=== PATIENT | male | born 1940 | race Caucasian/White ===

== ENCOUNTER 2016-08-17 12:12 | Day surgery (SDC) | payer OTHER ==
[2016-08-17] MEDS ORDERED: PROPOFOL 200 MG/20 ML VIAL IVP ONE (12:32)
[2016-08-17] MEDS ORDERED: fentaNYL 100 MCG/2 ML INJ IVP ONE (12:32)
[2016-08-17] MEDS ORDERED: MIDAZOLAM 2 MG/2 ML VIAL IVP ONE (12:32)
[2016-08-17] MEDS ORDERED: NS 500 ML IV ONE (12:32)
[2016-08-17] MEDS ORDERED: BENZOCAINE UNIT DOSE SPRAY HURRICAINE MM ONE (12:32)
--- NOTE | 2016-08-17 13:07 | CPEKG ---
Heart Rate: 119 RR Interval: 504 QRSD Interval: 88 QT Interval: 344 QTC Interval: 485 QRS [place]: -19 T Wave [place]: 51 EKG Severity - ABNORMAL ECG - EKG Impression: ATRIAL FIBRILLATION EKG Impression: BORDERLINE LEFT AXIS DEVIATION EKG Impression: BORDERLINE PROLONGED QT INTERVAL Electronically Signed By: Roberto Rainey 17-Aug-2016 18:26:19
[2016-08-17] MEDS ORDERED: LIDOCAINE 2% 5 ML SDV ONE (13:38)
[2016-08-17 13:40] LABS: INR 1.21 (0.83-1.16); PROTIME(PATIENT) 15.3 SEC (12.0-15.0)
[2016-08-17 13:41] LABS: APTT 39.4 SEC (23.0-38.0)
[2016-08-17 13:56] LABS: ANION GAP 8 mEq/L (8-16); CALCIUM 9.2 mg/dL (8.5-10.4); CARBON DIOXIDE 25 mEq/l (22-31); CHLORIDE 107 mEq/L (97-110); CREATININE 1.2 mg/dL (0.7-1.3); GLOMERULAR FILTRATION RATE 59; GLUCOSE 97 mg/dL (70-100); POTASSIUM 4.5 mEq/L (3.5-5.2); SODIUM 140 mEq/L (134-144)
--- NOTE | 2016-08-17 14:05 | CPEKG ---
Heart Rate: 73 RR Interval: 822 P-R Interval: 200 QRSD Interval: 112 QT Interval: 404 QTC Interval: 446 P [place]: 43 QRS [place]: -25 T Wave [place]: 28 EKG Severity - ABNORMAL ECG - EKG Impression: SINUS RHYTHM EKG Impression: INCOMPLETE RIGHT BUNDLE BRANCH BLOCK EKG Impression: LEFT AXIS DEVIATION Electronically Signed By: Roberto Rainey 17-Aug-2016 18:25:55
--- NOTE | 2016-08-17 14:18 | EPPROC ---
Electrophysiology Procedure Note: Procedure: CV Indication: Symptomatic AF Procedure: Pt sedated by anesthesia staff. JEAN performed which is reported separately. Once DARBY clot ruled out, pt cardioverted using 200J of synchronized DC. Pt successfully converted to SR. Conclusion: Successful CV.
== END 2016-08-17 15:46 | disposition home or self-care (01) ==
LOC: FCATH 12:12
PROVIDERS: ATTEND Internal Medicine Cardiovascular Disease
DX: I48.1 Persistent atrial fibrillation (principal); K21.9 Gastro-esophageal reflux disease without esophagitis
CPT/HCPCS: J2704

== ENCOUNTER 2017-02-20 14:35 | Observation (INO) | payer OTHER ==
--- NOTE | 2017-02-20 14:58 | CPEKG ---
Heart Rate: 126 RR Interval: 476 QRSD Interval: 94 QT Interval: 324 QTC Interval: 470 QRS [place]: -22 T Wave [place]: 38 EKG Severity - ABNORMAL ECG - EKG Impression: ATRIAL FIBRILLATION, V-RATE 91-170 EKG Impression: BORDERLINE LEFT AXIS DEVIATION Electronically Signed By: Polina Monahan 20-Feb-2017 20:36:44
--- NOTE | 2017-02-20 15:20 | EDPHY ---
H & P Time Seen by Provider: 02/20/17 15:00 HPI/ROS: CHIEF COMPLAINT: Atrial fibrillation HISTORY OF PRESENT ILLNESS: The patient is a 77-year-old male with known intermittent atrial fibrillation on Pradaxa who presents to the emergency department in atrial fibrillation with rapid ventricular response. He felt his symptoms started at 4:30 a.m.. He felt a "strange sensation "in his heart. He describes palpitations. This is similar to his previous episodes of atrial fibrillation. He spoke with his satellite installation technician on the phone. He took metoprolol 25 mg at 6:00 a.m.. He took a 2nd dose of metoprolol 25 mg at 7:30 a.m.. His symptoms persisted. At 1:00 p.m. he ate cake. He then went to his satellite installation technician 's office where he was found to be in atrial fibrillation with rapid ventricular rate. The based on to the emergency department for treatment with Cardizem and admission if he does not convert. Patient has no chest pain or shortness of breath. No recent fevers or chills. The patient does not drink alcohol. No [id number] medications. He has been taking his medications as directed. REVIEW OF SYSTEMS: My complete review of systems is negative except as mentioned in the HPI. Past Medical/Surgical History: Atrial fibrillation, aortic valve insufficiency, hypertension, high cholesterol Past surgical history: Includes shoulder surgery Social history: The patient does not smoke or use alcohol. He is to an emergency nurse. Smoking Status: Never smoked Physical Exam: Vitals noted. Tachycardic at 112.. GENERAL: Well-appearing, in no acute distress, alert. HEENT: Eyes normal to inspection, normal pharynx, no signs of dehydration. NECK: No thyromegaly, no lymphadenopathy, supple. RESPIRATORY: Clear to auscultation bilaterally, no rales, rhonchi or wheezing. CVS: Irregularly irregular rhythm but tachycardia, murmurs, or gallops. ABDOMEN: Soft, nontender, nondistended, no organomegaly. BACK: Normal to inspection, no CVA tenderness. SKIN: Normal color, no rash, warm, dry. No pallor. EXTREMITIES: No pedal edema, no calf tenderness, no Homans sign or cords, no joint swelling. NEURO/PSYCH: Alert and oriented x3, normal mood and affect, normal motor sensory exam. Constitutional: Initial Vital Signs Temperature (C) 36.4 C 02/20/17 14:36 Heart Rate 112 H 02/20/17 14:36 Respiratory Rate 18 02/20/17 14:36 Blood Pressure 105/73 02/20/17 14:36 O2 Sat (%) 97 02/20/17 14:36 O2 Delivery Mode Room Air Allergies/Adverse Reactions: hydrocodone [Hydrocodone] Allergy (Intermediate, Verified 02/20/17 14:42) Itching Home Medications: Medication Instructions Recorded Lipitor 20 mg 09/30/09 LORAZEPAM 0.5 mg PRN 02/18/11 Losartan-Hctz 100-25 mg Tab 08/17/16 Metoprolol Tartrate 25 mg BID 08/17/16 Pradaxa 150 MG (*) BID 08/17/16 Ipratropium 02/20/17 Nexium 02/20/17 Medical Decision Making ED Course/Re-evaluation: In the emergency department I discussed etiologies with the patient. I answered all his questions. IV was placed. Laboratory studies were obtained. An EKG was obtained. The patient is taking his Pradaxa as directed. EKG: Atrial fibrillation at 126. Borderline left axis deviation. Patient was given diltiazem 20 mg IV. His blood pressure in triage was 105/73. The room was 163 systolic. The patient was placed on a diltiazem drip. After receiving the. Patient's rate was controlled into the 50s-60s Repeat EKG: Atrial fibrillation at 67 For ongoing rate control he was placed on Cardizem drip. I discussed the case with Dr. Roberts from the hospital service. She will admit. Cardiology is aware the patient was sent to the emergency department. I rechecked the patient on numerous occasions. He was stable during his stay. I explained the admission and answers questions. Differential Diagnosis: My differential includes but is not limited to ACS, acute VT, atrial fibrillation with RVR, atrial flutter, electrolyte abnormality, sugar abnormality, dehydration Critical Care Time: Patient required 35 minutes of critical care time. This was exclusive of any unbundled procedure. This was due to the patient's atrial fibrillation with rapid ventricular rate, need for Cardizem bolus followed by Cardizem drip. - Data Points Laboratory Results: Laboratory Results 02/20/17 15:18 02/20/17 15:18 02/20/17 02/20/17 02/20/17 15:18 15:18 15:18 WBC 8.44 10^3/uL 10^3/uL (3.80-9.50) RBC 5.26 10^6/uL 10^6/uL (4.40-6.38) Hgb 17.2 g/dL g/dL (13.7-17.5) Hct 47.7 % % (40.0-51.0) MCV 90.7 fL fL (81.5-99.8) MCH 32.7 pg pg (27.9-34.1) MCHC 36.1 g/dL g/dL (32.4-36.7) RDW 13.0 % % (11.5-15.2) Plt Count 290 10^3/uL 10^3/uL (150-400) MPV 9.8 fL fL (8.7-11.7) Neut % (Auto) 63.4 % % (39.3-74.2) Lymph % (Auto) 25.2 % % (15.0-45.0) [place] % (Auto) 8.2 % % (4.5-13.0) Eos % (Auto) 1.9 % % (0.6-7.6) Baso % (Auto) 1.1 % % (0.3-1.7) Nucleat RBC Rel Count 0.0 % % (0.0-0.2) Absolute Neuts (auto) 5.35 10^3/uL 10^3/uL (1.70-6.50) Absolute Lymphs (auto) 2.13 10^3/uL 10^3/uL (1.00-3.00) Absolute Monos (auto) 0.69 10^3/uL 10^3/uL (0.30-0.80) Absolute Eos (auto) 0.16 10^3/uL 10^3/uL (0.03-0.40) Absolute Basos (auto) 0.09 10^3/uL 10^3/uL (0.02-0.10) Absolute Nucleated RBC 0.00 10^3/uL 10^3/uL (0-0.01) Immature Gran % 0.2 % % (0.0-1.1) Immature Gran # 0.02 10^3/uL 10^3/uL (0.00-0.10) PT 15.3 SEC H SEC (12.0-15.0) INR 1.21 H (0.83-1.16) APTT 46.0 SEC H SEC (23.0-38.0) Sodium 144 mEq/L mEq/L (134-144) Potassium 5.3 mEq/L H mEq/L (3.5-5.2) Chloride 102 mEq/L mEq/L (97-110) Carbon Dioxide 24 mEq/l mEq/l (22-31) Anion Gap 18 mEq/L H mEq/L (8-16) BUN 19 mg/dL mg/dL (7-23) Creatinine 1.1 mg/dL mg/dL (0.7-1.3) Estimated GFR > 60 Glucose 103 mg/dL H mg/dL (70-100) Calcium 10.0 mg/dL mg/dL (8.5-10.4) Troponin I 0.029 ng/mL ng/mL (0.000-0.034) Specimen Hemolysis 185 Medications Given: Discontinued Medications Aspirin (Aspirin) 324 mg PO EDNOW ONE Stop: 02/20/17 15:22 Last Admin: 02/20/17 15:41 Dose: 324 mg Diltiazem HCl (Cardizem 25 Mg/5 Ml Vial) 20 mg IVP EDNOW ONE Stop: 02/20/17 15:22 Last Admin: 02/20/17 15:34 Dose: 20 mg Sodium Chloride (Ns) 500 mls @ 1,000 mls/hr IV EDNOW ONE PRN Reason: Protocol Stop: 02/20/17 15:50 Last Admin: 02/20/17 15:35 Dose: 500 mls Departure - Departure Disposition: [facility] Acute Clinical Impression: Atrial fibrillation with RVR Atrial fibrillation Qualifiers: Atrial fibrillation type: paroxysmal Qualified Code(s): I48.0 - Paroxysmal atrial fibrillation Condition: Good
[2017-02-20] MEDS ORDERED: DILTIAZEM 25 MG/5 ML VIAL IVP ONE (15:21)
[2017-02-20] MEDS ORDERED: ASPIRIN 81 MG CHEWABLE TAB PO ONE (15:21)
[2017-02-20] MEDS ORDERED: DILTIAZEM 125 MG in D5W 125 ML IV ONE (15:21)
[2017-02-20] MEDS ORDERED: NS 500 ML IV ONE (15:21)
[2017-02-20 15:27] LABS: % IMMATURE GRANULYOCYTES 0.2 % (0.0-1.1); ABSOLUTE IMMATURE GRANULOCYTES 0.02 10^3/uL (0.00-0.10); ADD DIFF? NO; ADD MORPH? NO; ADD SCAN? NO; ATYPICAL LYMPHOCYTE FLAG 0 (0-99); FRAGMENT RBC FLAG 0 (0-99); HEMATOCRIT 47.7 % (40.0-51.0); HEMOGLOBIN 17.2 g/dL (13.7-17.5); LEFT SHIFT FLG 0 (0-99); LIPEMIA HEMOLYSIS FLAG 90 (0-99); MEAN CELL HEMOGLOBIN 32.7 pg (27.9-34.1); MEAN CELL HEMOGLOBIN CONCENTR. 36.1 g/dL (32.4-36.7); MEAN CELL VOLUME 90.7 fL (81.5-99.8); MEAN PLATELET VOLUME 9.8 fL (8.7-11.7); PLATELET CLUMPS FLAG 10 (0-99); PLATELET COUNT 290 10^3/uL (150-400); RED BLOOD CELL COUNT 5.26 10^6/uL (4.40-6.38)
[2017-02-20 15:35] LABS: INR 1.21 (0.83-1.16); PROTIME(PATIENT) 15.3 SEC (12.0-15.0)
[2017-02-20 15:58] LABS: SPECIMEN HEMOLYSIS 185; TROPONIN I 0.029 ng/mL (0.000-0.034)
[2017-02-20 16:01] LABS: ANION GAP 18 mEq/L (8-16); CARBON DIOXIDE 24 mEq/l (22-31); CHLORIDE 102 mEq/L (97-110); CREATININE 1.1 mg/dL (0.7-1.3); GLOMERULAR FILTRATION RATE > 60; GLUCOSE 103 mg/dL (70-100); POTASSIUM 5.3 mEq/L (3.5-5.2); SODIUM 144 mEq/L (134-144)
--- NOTE | 2017-02-20 16:17 | CPEKG ---
Heart Rate: 67 RR Interval: 896 QRSD Interval: 108 QT Interval: 404 QTC Interval: 427 QRS [place]: -43 T Wave [place]: 31 EKG Severity - ABNORMAL ECG - EKG Impression: ATRIAL FIBRILLATION EKG Impression: BORDERLINE IVCD WITH LAD Electronically Signed By: Polina Monahan 20-Feb-2017 20:36:44
[2017-02-20] MEDS ORDERED: NON-FORMULARY NEW DRUG (Esomeprazole Magnesium [Nexium] 20 MG) PO PRN (17:27)
[2017-02-20] MEDS ORDERED: NON-FORMULARY NEW DRUG (Ranitidine Hcl [Zantac] 150 MG) PO PRN (17:27)
[2017-02-20] MEDS ORDERED: DILTIAZEM 125 MG in D5W 125 ML IV SCH (17:30)
[2017-02-20] MEDS ORDERED: ONDANSETRON 4 MG/2 ML VIAL IVP PRN (17:32)
[2017-02-20] MEDS ORDERED: ACETAMINOPHEN 325 MG TAB PO PRN (17:32)
[2017-02-20] MEDS ORDERED: FAMOTIDINE 20 MG TAB PO PRN (17:39)
[2017-02-20] MEDS ORDERED: PANTOPRAZOLE SODIUM 40 MG TAB PO PRN (17:39)
[2017-02-20] MEDS ORDERED: NS 1,000 ML IV SCH (17:45)
[2017-02-20] MEDS: DABIGATRAN ETEXILATE MESYL 150 MG CAP PO SCH (19:51)
[2017-02-20] MEDS: METOPROLOL TARTRATE 25 MG TAB PO SCH (19:51)
[2017-02-20] MEDS ORDERED: ATORVASTATIN CALCIUM 20 MG TAB PO SCH (21:00)
[2017-02-20] MEDS ORDERED: diphenhydrAMINE 25 MG CAP PO SCH (21:00)
--- NOTE | 2017-02-20 21:09 | GHP ---
[f rep st] HISTORY AND PHYSICAL DATE OF ADMISSION: 02/20/2017 CHIEF COMPLAINT: Palpitations. HISTORY OF PRESENT ILLNESS: The patient is a 77-year-old male who has a history of paroxysmal atrial fibrillation although it typically is in a normal sinus rhythm. At 4:30 this morning he developed s ignificant palpitations. He spoke to Cardiology and took a step couple extra doses of metoprolol but continued to have rapid rates so went into the Cardiology office. They sent him to the ER for Cardi zem drip and if he remains in atrial fibrillation in the morning, they plan for cardioversion. He de nies any chest pain or shortness of breath. He is otherwise without any complaints. PAST MEDICAL HISTORY: 1. Paroxysmal atrial fibrillation. 2. Aortic insufficiency. 3. Hypercholesterolemia. MEDICATIONS: Please see computer record for full detailed list. ALLERGIES: Hydrocodone. SOCIAL HISTORY: No smoking. No alcohol. Lives with his . REVIEW OF SYSTEMS: Complete review of systems obtained. Review of systems is negative on constituti onal, HEENT, GI, pulmonary, cardiovascular, , hematology, skin, muscular, endocrine, psych except f or positives and negatives as in HPI. FAMILY HISTORY: Reviewed, noncontributory to current complaint. PHYSICAL EXAMINATION: GENERAL: Well-developed, well-nourished male, in no distress. VITAL SIGNS: Temperature 36.4, pulse initially 112, now in the 70s on a Diltiazem drip. Blood pressure 101/75, sa turating 91% on room air. EYES: Normal conjunctivae. Pupils equal and reactive to light. ENT: No rmal ears and nose. Hearing intact. Normal teeth. Oropharynx moist. NECK: Trachea midline. No t hyromegaly. CHEST: Normal respiratory effort. LUNGS: Clear to auscultation bilaterally. CARDIOVA SCULAR: Irregular. No murmur. No lower extremity edema. ABDOMEN: Soft, nontender. No hepatosple nomegaly. SKIN: Warm, dry, intact. No rash. MUSCULOSKELETAL: No cyanosis or clubbing. Strength 5/5 upper and lower extremities. NEUROLOGIC: Cranial nerves intact. Normal sensation light touch. PSYCHIATRIC: Alert and oriented x3. Normal affect. Normal judgment and insight. Normal memory. LABORATORY DATA: White count 8.44, hematocrit 47.7, platelets 290. Sodium 144, potassium 5.3, chlor tomer 102, bicarb 24, BUN 19, creatinine 1.1. Glucose 103. Troponins negative. INR is 1.2. EKG viewed by me. My personal interpretation is atrial fibrillation. No ST-T wave changes. Telemet ry currently showing atrial fibrillation with rate control at 70. The case was discussed with Dr. Laura ramos in the emergency room. He initiated the diltiazem drip and spoke to Cardiology. ASSESSMENT AND PLAN: 1. Atrial fibrillation rapid ventricular response. Continue his IV diltiazem drip overnight. We wi ll keep him n.p.o. after midnight for possible cardioversion in the morning if he does not convert on his own. We will continue his Pradaxa. 2. Hyperkalemia. I will recheck this in the morning post hydration. 3. Hypertension. Continue losartan and metoprolol. We will watch his potassium closely on the ARB. 4. Hyperlipidemia. Continue statin drug. CODE STATUS: Full. ADMISSION STATUS: Will admit to observation as he might go home tomorrow if he gets back to sinus rh ythm. DVT PROPHYLAXIS: He is chronically on Pradaxa which will be continued. /[id number]/MODL
[2017-02-21 05:27] LABS: ANION GAP 12 mEq/L (8-16); CALCIUM 9.4 mg/dL (8.5-10.4); CARBON DIOXIDE 23 mEq/l (22-31); CHLORIDE 108 mEq/L (97-110); CREATININE 1.1 mg/dL (0.7-1.3); GLOMERULAR FILTRATION RATE > 60; GLUCOSE 97 mg/dL (70-100); POTASSIUM 4.2 mEq/L (3.5-5.2); SODIUM 143 mEq/L (134-144)
[2017-02-21] MEDS ORDERED: LOSARTAN POTASSIUM 50 MG TAB PO SCH (07:30)
[2017-02-21] MEDS: DABIGATRAN ETEXILATE MESYL 150 MG CAP PO SCH (07:50)
[2017-02-21] MEDS: METOPROLOL TARTRATE 25 MG TAB PO SCH (07:51)
--- NOTE | 2017-02-21 10:49 | HOSPPROG ---
Hospitalist Progress Note Assessment/Plan: 77 yo female admitted for acute on chronic Afib. Started on IV dilt. Continue to be in Afib. Plan is for him to get cardioversion today. Per the patient, his Cardiology is aware and they are planning this today. #Afib with RVR #Chronic AC on Pradaxa #Hyperkalemia: resolved #HTN: on Losartan and Metoprolol #HLD: on statin Dispo: likely d/c today pending cardioversion Subjective: Awaiting cardioversion Objective: Vital Signs Temp Pulse Resp BP Pulse Ox 36.4 C 103 H 12 106/68 95 02/21/17 07:37 02/21/17 10:33 02/21/17 07:37 02/21/17 10:33 02/21/17 07:37 Laboratory Results 02/21/17 04:28 02/20/17 02/21/17 02/22/17 05:59 05:59 05:59 Intake Total 915 Output Total 350 Balance 565 PT 15.3 SEC (12.0-15.0) H 02/20/17 15:18 INR 1.21 (0.83-1.16) H 02/20/17 15:18 - Physical Exam Constitutional: no apparent distress, appears nourished, not in pain Eyes: PERRL, anicteric sclera, EOMI Ears, Nose, Mouth, Throat: moist mucous membranes, hearing normal, ears appear normal, no oral mucosal ulcers Cardiovascular: irregularly irregular Respiratory: no respiratory distress, no rales or rhonchi, clear to auscultation Gastrointestinal: normoactive bowel sounds, soft, non-tender abdomen Skin: warm Neurologic: AAOx3 Psychiatric: interacting appropriately, not anxious, not encephalopathic, thought process linear ICD10 Worksheet Patient Problems: Problems Problem Status Onset Atrial fibrillation Acute Atrial fibrillation with RVR Acute
--- NOTE | 2017-02-21 12:58 | PDANEPAE ---
ANE History of Present Illness 77 year old with AF ANE Past Medical History - Cardiovascular History Hx Arrhythmias: Yes - Pulmonary History Hx Oxygen in Use at Home: No Hx Sleep Apnea: No - Endocrine History Hx Diabetes: No - Chronic Pain History Chronic Pain: No ANE Review of Systems Review of systems is: negative Review of Systems: ANE Patient History - Allergies Allergies/Adverse Reactions: hydrocodone [Hydrocodone] Allergy (Intermediate, Verified 02/20/17 14:42) Itching - Home Medications Home medications: home medication list seen and reviewed Home Medications: Atorvastatin Calcium [Lipitor 20 mg (*)] 20 mg PO HS 02/20/17 [Last Taken ] Cholecalciferol Vit D3 [Vitamin D3 (*)] 1,000 units PO DAILY 02/20/17 [Last Taken Unknown] Dabigatran Etexilate Mesyl [Pradaxa 150 MG (*)] 150 mg PO BID@0730,1930 [Last Taken 02/20/17 07:30] Esomeprazole Magnesium [Nexium] 20 mg PO DAILY PRN 02/20/17 [Last Taken Unknown] Ibuprofen [Motrin (*)] 200 mg PO DAILY PRN 02/20/17 [Last Taken Unknown] Losartan Potassium [Cozaar 50 mg (*)] 50 mg PO DAILY@0730 02/20/17 [Last Taken 02/20/17] Metoprolol Tartrate [Lopressor 25 mg (*)] 25 mg PO BID@0730,1930 02/20/17 [Last Taken 02/20/17 07:30] Ranitidine HCl [Zantac] 150 mg PO DAILY PRN 02/20/17 [Last Taken 02/19/17] diphenhydrAMINE [Benadryl 25 MG (*)] 25 mg PO HS 02/20/17 [Last Taken 02/19/17] - NPO status NPO Status: no food or drink >8 hours - Anes Hx Anes Hx: no prior problems - Smoking Hx Smoking Status: Never smoked ANE Labs/Vital Signs - Labs Result Diagrams: 02/20/17 15:18 02/21/17 04:28 - Vital Signs Blood Pressure: 106/68 Heart Rate: 103 Respiratory Rate: 12 O2 Sat (%): 95 Height: 175.26 cm Weight: 86.9 kg ANE Physical Exam - Airway Neck exam: FROM Mallampati Score: Class 2 - Pulmonary Pulmonary: no respiratory distress - Cardiovascular Cardiovascular: regular rate and rhythym - ASA Status ASA Status: II ANE Anesthesia Plan Anesthesia Plan: MAC
[2017-02-21] MEDS ORDERED: PROPOFOL 200 MG/20 ML VIAL ONE (13:00)
[2017-02-21] MEDS ORDERED: ATROPINE SULFATE 1 MG/10 ML SYR ONE ×2 (13:01→13:02)
--- NOTE | 2017-02-21 13:16 | POSTANESTH ---
Post Anesthetic Evaluation Cardiovascular Status: Normal, Stable Respiratory Status: Normal, Stable Level of Consciousness/Mental Status: Can Participate in Eval, Mildly Sleepy, Arousable Pain Control: Adequate, Prn Tx Ordered Nausea/Vomiting Control: Adequate, Prn Tx Ordered Complications Possibly Related to Anesthesia: None Noted
--- NOTE | 2017-02-21 13:21 | CPEKG ---
Heart Rate: 45 RR Interval: 1333 P-R Interval: 228 QRSD Interval: 118 QT Interval: 468 QTC Interval: 405 P [place]: 47 QRS [place]: -24 T Wave [place]: 26 EKG Severity - ABNORMAL ECG - EKG Impression: SINUS BRADYCARDIA EKG Impression: Right ventricular conduction defect EKG Impression: Leftward axis EKG Impression: Resolution of atrial fibrillation since February 20, 2017 Electronically Signed By: Hammad Ji 21-Feb-2017 18:04:50
[2017-02-21 14:13] VITALS: TEMP 97.9; O2SAT 93
[2017-02-21] MEDS ORDERED: FLU VACC QS 2017-18 (3YR+)/PF 0.5 ML SYR (FLUARIX QUAD) IM ONE ×2 (14:13→16:34)
--- NOTE | 2017-02-21 14:35 | PDDCSUM ---
Discharge Summary Discharge Summary: 77 yo male admitted for acute on chronic Afib. Started on IV dilt. Continue to be in Afib this morning and therefore has cardioversion. He is now back in SR and requesting discharge. Given he is back to baseline will discharge. No adjustments to his current medications were made #Afib with RVR #Chronic AC on Pradaxa #Hyperkalemia: resolved #HTN: on Losartan and Metoprolol #HLD: on statin Exam: see progress note from today DC Meds: see med rec total time spent on discharge is 40 minutes
--- NOTE | 2017-02-21 14:44 | PDGENHP ---
History and Physical History and Physical: No changes with patient physical examination were noted prior to the cardioversion. Risks and benefits of the procedure were discussed with patient and family. Anesthesia was used for sedation.
--- NOTE | 2017-02-21 14:47 | PDCARD ---
Cardioversion Procedure Procedure: Cardioversion for atrial fibrillation (rates of 60-80 bpm) Indications: atrial fibrillation Consent: signed and in chart Anticoagulation: other (Pradaxa) Procedural Details: After consent was signed and in the chart, anesthesia provided sedation Patient has been on uninterrupted Pradaxa therapy A single, synchronized shock at 200 J was performed with return to normal sinus rhythm at 45-50 bpm. No complications were noted Patient was recovered without incident Synchronized cardioversion attempt #1: 200J Results: normal sinus rhythm Conclusions: successful cardioversion Conclusion Comment: Outpatient follow up with cardiology is scheduled for this Sunday at 1300. No complications were noted. Patient did very well. I spoke with family and the patient post procedure. Patient Problems: Problems Problem Status Onset Atrial fibrillation Acute Atrial fibrillation with RVR Acute
--- NOTE | 2017-02-21 15:32 | ASMTCMCOM ---
CM Note CM Note Notes: Chart reviewed. Patient admitted to [facility] for afib with RVR. Cardioversion successful. Dc'd to home with no needs identified. CM available to follow if needs arise. Date Signed: 02/21/2017 03:31 PM Electronically Signed By:Mary Canada RN
[2017-02-21 15:51] VITALS: BP 107/58; PULSE 59; RESP 17
--- NOTE | 2017-02-22 09:07 | ASDISCHSUM ---
Discharge Information Plan Status:Home with No Needs Medically Cleared to Leave:02/21/2017 Discharge Date:02/21/2017 04:42 PM CM D/C Disposition:Home, Routine, Self-Care ADT D/C Disposition:Home, Routine, Self-Care Projected Discharge Date:02/21/2017 04:42 PM Transportation at D/C:Family Discharge Delay Reason: Follow-Up Date:02/21/2017 04:42 PM Discharge Slot: Final Diagnosis: Placement Information Patient Contact Information Contact Name:JENNIFER Relationship: Address:[address] City:[place] Alternate Phone: [facility]/Zip Code:[place] [address] Email: Financial Information Financial Class:HMO and PPO Plans Primary Plan Desc:[employer] PPO Primary Plan Number:[id number] Secondary Plan Desc:MEDICARE OUTPATIENT Secondary Plan Number:[id number] Assessment Information [place] CM Progress Note CM Note CM Note Notes: Chart reviewed. Patient admitted to [facility] for afib with RVR. Cardioversion successful. Dc'd to home with no needs identified. CM available to follow if needs arise. Date Signed: 02/21/2017 03:31 PM Electronically Signed By:Mary Canada RN Intervention Information
== END 2017-02-21 16:42 | disposition home or self-care (01) ==
LOC: F2W 17:13
PROVIDERS: ADMIT Internal Medicine; ATTEND Family Medicine
PROC: 3E0337Z Introduction of Electrolytic and Water Balance Substance into Peripheral Vein, Percutaneous Approach (ICD-10-PCS; 2017-02-20)
PROC: 5A2204Z Restoration of Cardiac Rhythm, Single (ICD-10-PCS; principal; 2017-02-21)
DX: I48.2 Chronic atrial fibrillation (principal); E87.5 Hyperkalemia; E78.5 Hyperlipidemia, unspecified; I10 Essential (primary) hypertension; I35.1 Nonrheumatic aortic (valve) insufficiency; Z23 Encounter for immunization
CPT/HCPCS: 90471; 92960; 93005; 96361; 96374; 96375; 99291; G0378; G0008; J0461; J2704

== ENCOUNTER → 2018-08-09 | Outpatient (CLI) | payer OTHER | LOC: FIMAGING 09:55 | DX: J31.0 Chronic rhinitis (principal) ==